=== PATIENT | female | born 1955 | race Caucasian/White ===

== ENCOUNTER 2018-05-15 14:10 | Inpatient (IN) | payer BC ==
[~2018-05-15] VITALS: Ht 167.6 cm; Wt 114.1 kg
[~2018-05-15 14:10] MED LIST: ACTOS 45MG45 MG/TAB PO; AMARYL4 MG PO; GLUCOPHAGE1000 MG PO; HYZAAR 25 MG-101 TAB PO; JANUVIA 100MG100 MG PO; LEVEMIR100 U/ML SQ; LOPID 600M600 MG/TAB PO; MOBIC15 MG PO; SINGULAIR 110 MG/TAB PO; VICTOZA6 MG/ML SQ
[2018-06-17] VITALS (7 sets, daily range): BP systolic 133–151; BP diastolic 54–67; PULSE 74–99; TEMP 97.7–98.3
--- NOTE | 2018-06-17 10:50 | NUR ---
PATIENT BACK IN ROOM 330. ORIENTED BUT DROWSY. VSS. C/O MILD DISCOMFORT/PRESSURE ABOVE RIGHT KNEE. PATIENT FALLING ASLEEP. FRIENDS LEAVING TO LET PATIENT SLEEP. RIGHT AND LEFT KNEE DRESSING ARE CD&I WITH ACEWRAP AND CONSTOVAC DRAINS INPLACE WITH SMALL AMOUNTS OF BLOODY DRAINAGE NOTED. TEDS OFF. SCD'S TO BLE. POSITIVE PEDAL PULSES TO BLE. KEITA TO DEPENDENT DRAINAGE WITH MOD AMOUNTS OF KIKE COLORED URINE NOTED. IV FLUIDS INFUSING VIA PUMP INTO LEFT HAND. NO C/O N/V. LIQUIDS AND ICE CHIPS AT BEDSIDE. HEAD TO TOE ASSESSMENT WNL. NO OTHER NEEDS. CALL LIGHT IN REACH. PATIENT SLEEPING. LIGHTS TURNED DOWN.
--- NOTE | 2018-06-17 13:18 | NUR ---
SW met with patient to discuss discharge planning. Patient lives in [place] and was independent prior to surgery. Patients PCP is Dr Molina and she obtains her medications from [facility]. Patient does not have a DPOA and would like to do one after she is able to rest today. Patient would like to go to [facility] for skilled and has already talked to them. SW obtained choice form and faxed referral. LUIS will continue to follow.
--- NOTE | 2018-06-17 14:35 | NUR ---
ONLY 50CC OF BLOOD NOTED IN BOTH CONSTOVACS, NO TRANSFUSIONS GIVEN.
--- NOTE | 2018-06-17 20:30 | NUR ---
Assessment completed. Patient is A&O x 4. VSS, on room air. Pain controlled at this time with oral regimen and scheduled Toradol. Kofi wrap dressing to bilateral knees are CDI with an ice pack maintained. Constav to both knees had minimal output on day shift and currently each have about 50 ml of blood noted, will not be re-infused. Encouraged ankle pumps while patient is laying in bed. BLE scds on. Tolerated diet with no c/o nausea. Lindsay catheter to DD with yellow clear urine draining. IVF infusing with intermittent antibiotic per orders. Denies any concerns or needs at this time. Bed is in a low position with call light in reach.
--- NOTE | 2018-06-17 21:55 | NUR ---
Patient dangled on the edge of the bed with assist x 2, patient had an increase in pain while dangling. After dangling for approximately 5 minutes assisted patient back into bed with assist x 2 and repositioned. Patient's blood sugar this evening is 200, insulin given per orders. Denies any concerns or needs at this time, call light is within reach.
[2018-06-18 00:05] VITALS: BP 150/50; PULSE 105; TEMP 98.3
[2018-06-18 04:32] VITALS: BP 155/59; PULSE 105; TEMP 98
--- NOTE | 2018-06-18 04:54 | NUR ---
Patient has rested well through the night. VSS, remains on room air. Pain has been controlled with scheduled Toradol and prn [place]. Bilateral knee nadia wraps remain CDI with fresh ice packs applied this morning. Lindsay catheter to DD with yellow clear urine draining. IVF infusing with last dose of antibiotic due this morning then will be INT. Denies any concerns or needs, call light is within reach.
[2018-06-18] MEDS ORDERED: CELEBREX 200MG200 MG PO (06:17)
[2018-06-18] MEDS ORDERED: XARELTO10 MG PO (06:17)
[2018-06-18] MEDS ORDERED: NORCO 325 MG-7.1 TAB PO (06:18)
[2018-06-18] MEDS ORDERED: PERCOCET 325 MG1 TA2 PO (06:19)
[2018-06-18] MEDS ORDERED: ULTRAM 50MG TAB50 MG PO (06:19)
--- NOTE | 2018-06-18 06:45 | NUR ---
awake resting in bed, bedside shift report received from DANIEL Otto
--- NOTE | 2018-06-18 07:50 | NUR ---
lab in to draw blood and blood sugar checked, full assessment completed, see interventions for further info, has mod amount bloody drainage to right drain site and minimal to left drain site, aquacel dressings are CD&I to bilateral knees, reviewing menu and will order breakfast soon
[2018-06-18 08:00] VITALS: BP 131/56; PULSE 98; TEMP 98.2
--- NOTE | 2018-06-18 09:02 | NUR ---
medicated with hydrocodone 7.5mg 2 tabs in anticipation of therapy and also medicated with scheduled toradol, physical and occupational therapy in to work with patient, assisted her out of bed and into recliner,
--- NOTE | 2018-06-18 10:15 | NUR ---
called nurse to room and had mod amount emesis of undigested food, medicated with phenergan 12.5mg po
--- NOTE | 2018-06-18 10:42 | NUR ---
[facility]ianna[facility] at [facility] reports that [facility] accept the patient for a skilled stay. SW to inform the patient and continue to follow.
--- NOTE | 2018-06-18 10:55 | NUR ---
remains up in chair and appears to be sleeping, eyes closed, resp quiet and easy
--- NOTE | 2018-06-18 11:25 | NUR ---
Initial visit; Patient thanked Event Representative for looking in on her and keeping her in her prayrs. Patient's Blueprint Clerk has made a call and prayed with RJ today.
--- NOTE | 2018-06-18 11:30 | NUR ---
awake and resting in chair, states she is feeling OK just very sleepy, denies needs
[2018-06-18 11:47] VITALS: BP 157/64; PULSE 99; TEMP 98.5
--- NOTE | 2018-06-18 12:38 | NUR ---
assisted up to bedside commode to try and have bowel movement, medicated with hydrocodone 7.5mg 2 tabs
--- NOTE | 2018-06-18 13:15 | NUR ---
physical therapy in to work with patient, when started to ambulate again had emesis, then felt better
--- NOTE | 2018-06-18 14:05 | NUR ---
ambulated back to room after therapy and moved slow but steady, requesting something for the nausea and vomitting
--- NOTE | 2018-06-18 14:10 | NUR ---
medicated with phenergan 12.5mg po, given hot tea to try and have
--- NOTE | 2018-06-18 15:20 | NUR ---
Julianna, at [facility], informed SW that they are now having difficulties with the patient's insurance. Julianna reports that the patient's insurance will not cover SNF, but would cover inpatient rehab and that she has met with the patient to inform. LUIS then followed up with the patient and she reports she would be agreeable to [facility]. LUIS consulted [facility] Director, Toña. SW awaiting the screening.
--- NOTE | 2018-06-18 15:34 | NUR ---
medicated with scheduled toradol, wants to wait to have catheter removed hoping her pain becomes better controlled
--- NOTE | 2018-06-18 16:17 | NUR ---
[facility] director in talking with patient regarding discharging to [facility]
[2018-06-18 16:22] VITALS: BP 151/60; PULSE 101; TEMP 98.7
--- NOTE | 2018-06-18 18:10 | NUR ---
resting in bed, patient asking to have catheter left in until morning and explained to her it had to come out today and explained why, catheter discontinued and tolerated well, medicated with hydrocodone 7.5mg 2 tabs and had saltine crackers before taking them, will order supper soon
--- NOTE | 2018-06-18 19:47 | NUR ---
Assessment completed. Patient is A&O x 4. VSS, on room air. Pain controlled at this time with prn [place] and last dose of scheduled IV Toradol given. Aquacell dressings to bilateral knee are CDI with an ice pack maintained to knee. Lateral gauze dressing on both knees have drainage. Pedal pulses intact. BLE scds on, DARRYL hose do not fit. Patient reported not having an appetite this evening but did take a small snack this evening and tolerated with no c/o nausea. INT to left hand. Patient is due to void as breen catheter was removed at the end of day shift. INT to left hand. Denies any concerns or needs at this time. Bed is in a low position with call light in reach.
[2018-06-18 21:38] VITALS: BP 179/58; PULSE 103; TEMP 98.6
--- NOTE | 2018-06-18 21:45 | NUR ---
Patient called out stating she needed to urinate. Patient stated she could not ambulate to the bathroom and needed to use the bedside commode, educated patient on ambulating to the bathroom but continued to insist she couldn't at this time. Assisted up x two with walker, patient took a few steps to bedside commode, gait unsteady. Patient voided with no difficulities. Assist x 2 back to bed, patient had difficulities getting to a standing position off the commode with help from staff. Once patient was up able to ambulate back to bed with walker, gait steady. Repositioned in bed with pillows and ice pack.
[2018-06-19] VITALS: BP 137/79; PULSE 74; TEMP 98.6
[2018-06-19 04:56] VITALS: BP 148/57; PULSE 94; TEMP 98.3
--- NOTE | 2018-06-19 05:19 | NUR ---
Patient has rested well through the night. Pain continues to be controlled with prn [place]. Aquacell dressing to bilateral knees remain CDI and lateral bilateral gauze dressings with drainage, no increase through this shift. Patient denies any concerns or needs at this time, call light is within reach.
--- NOTE | 2018-06-19 06:49 | NUR ---
awake resting in bed, bedside shift report received from DANIEL Otto
[2018-06-19 07:06] LABS: HEMATOCRIT 28.8 % (37.0-47.0); HEMOGLOBIN 9.4 g/dl (12.5-16.0)
--- NOTE | 2018-06-19 07:20 | NUR ---
blood sugar 61, provided cranberry juice per patient's request, full assessment completed, see interventions for further info,
[2018-06-19 08:03] VITALS: BP 134/42; PULSE 93; TEMP 97.9
--- NOTE | 2018-06-19 08:05 | NUR ---
Pt resting in bed. States pain level is 2/10 in R knee describes as an aching pain. SCDs put back on. Bilateral knee incisions w/ Aquacell dressing CDI. Both knees swollen. INT no redness or pain, intact on L hand. Complains of slight nausea, sat up and ate some crackers. Nausea was relieved.
--- NOTE | 2018-06-19 08:14 | NUR ---
sitting up in bed c/o some nausea, has breakfast at bedside
--- NOTE | 2018-06-19 08:45 | NUR ---
sitting up in bed and trying to eat, continues to have some nausea and had small amount of emesis, medicated with hydrocodone 7.5mg 2 tabs for c/os pain and in anticipation of therapy
--- NOTE | 2018-06-19 08:51 | NUR ---
After eating some of an kinyarwanda muffin, pt vomited approx. 45 ml. Emesis had red liquid in it from drinking cranberry juice.
--- NOTE | 2018-06-19 09:23 | NUR ---
ambulated out to toney with physicial therapy with 1 assist for group exercises
--- NOTE | 2018-06-19 09:37 | NUR ---
ambulated back to room after therapy and remains up in chair
--- NOTE | 2018-06-19 10:00 | NUR ---
continues to c/o some nausea, medicated with phenergan 12.5mg po by DANIEL Hussein
--- NOTE | 2018-06-19 10:32 | NUR ---
have reviewed assessment completed by student and in agreement with that assessment with the exception of her gait, I have observed her ambulating and believe her to have a steady gait with the walker
--- NOTE | 2018-06-19 11:00 | NUR ---
resting in chair, continues to c/o some nausea and just not feeling good, will continue to monitor
[2018-06-19 11:30] VITALS: BP 138/56; PULSE 88; TEMP 97.9
--- NOTE | 2018-06-19 11:35 | NUR ---
Reported off to primary nurse Claudia SANCHEZ.
--- NOTE | 2018-06-19 11:45 | NUR ---
remains up in chair, appears to be feeling a little better as she was joking with this nurse, has ordered lunch
--- NOTE | 2018-06-19 12:10 | NUR ---
called and left message with surgery nurse for Kesha that she has been accepted at [facility]
--- NOTE | 2018-06-19 12:22 | NUR ---
sitting up in bed eating mashed potatoes and broccoli and tolerates well at this time, given am diabetic meds now
--- NOTE | 2018-06-19 12:50 | NUR ---
medicated with hydrocodone 7.5mg 2 tabs in anticipation of therapy and for c/os pain, assisted up to bathroom and vois qs and then back to bed
--- NOTE | 2018-06-19 13:00 | NUR ---
awaiting order from Dr Whitley for patient to transfer to [facility] will wait to work with therapy
--- NOTE | 2018-06-19 14:26 | NUR ---
Toña, [facility] Director, reports that they can accept the patient for [facility]. LUIS updated Julianna at [facility]. The patient is to transfer to [facility] today, 06/19. No additional needs at this time.
--- NOTE | 2018-06-19 14:28 | NUR ---
no orders received for transfer to therapy, physical therapy in to work with patient, she is resting in bed and denies needs
--- NOTE | 2018-06-19 15:30 | NUR ---
back to bed after therapy and resting quietly, denies needs
[2018-06-19 16:19] VITALS: BP 146/53; PULSE 98; TEMP 97.4
--- NOTE | 2018-06-19 16:21 | NUR ---
Dr Whitley in to see patient
--- NOTE | 2018-06-19 17:15 | NUR ---
appears to be sleeping, in bed with eyes closed, resp quiet and easy
--- NOTE | 2018-06-19 18:03 | NUR ---
resting quietly, will have a friend bring her supper, denies needs at this time
--- NOTE | 2018-06-19 18:45 | NUR ---
bedside shift report given to DANIEL Otto
--- NOTE | 2018-06-19 19:46 | NUR ---
Assessment completed. Patient is A&O x 4. VSS, on room air. Reports pain to bilateral knees, elevated with pillows and a fresh ice pack applied. Lateral bilateral gauze dressings with drainage. Pedal pulses intact. BLE scds on. Patient had an episode of emesis this evening after eating soup, prn oral Zofran given. Voiding with no difficulities. INT to left hand. Up with assist x 1 with walker and gait belt, gait is slow and steady. Denies any concerns or needs at this time. Bed is in a low position with call light in reach.
[2018-06-19 19:51] VITALS: BP 134/50; PULSE 100; TEMP 98.5
--- NOTE | 2018-06-19 20:34 | NUR ---
Patient has continued to feel nauseous and has had 2 more episodes of emesis, prn po Phenergan given.
--- NOTE | 2018-06-19 22:30 | NUR ---
Patient ambulated to the bathroom is needing assist x 2 to get to a standing position and then is able to ambulate with assist x 1, gait is steady. Provided a small snack with pain medication this evening and tolerated with no c/o nausea or vomitting afterwards. Assisted with repositioning in bed and applied new ice packs to bilateral knees.
[2018-06-20 00:22] VITALS: BP 154/57; PULSE 99; TEMP 98.2
[2018-06-20 05:43] VITALS: BP 133/54; PULSE 102; TEMP 98.6
--- NOTE | 2018-06-20 06:12 | NUR ---
Patient has rested well through the night. VSS. Pain controlled with Percocet. Aquacell dressings to bilateral knees remain CDI and lateral gauze dressings with no increase in drainage. Patient has not c/o any nausea or vomitting since receiving prn oral Phenergan last night. Up multiple times through the night with assist x 2 at times to stand and once up x 1 assist with walker. Denies any concerns or needs at this time, call light within reach.
[2018-06-20 07:30] VITALS: BP 140/53; PULSE 103; TEMP 98
--- NOTE | 2018-06-20 08:42 | NUR ---
Bedside report from DANIEL Otto. Pt in bed in gown, SCDs to BLE and ice in place, glasses on. INT to L hand. Reviewed plan to discharge to [facility] this morning. Due to nausea and pain, ordered pt toast, applesauce, banana, dt sprite and ice tea with lemon per pt request. Zofran given, provided pain meds to take after eating something. Discharged pt from surgical account. Pt toileted with assist by IRENE Moreland, to amb to BR with FWW and gait belt. , PT will return to start therapy after pt eats and takes pain meds. Pt A&O, pleasant, recalls this nurse from visiting the hospital months ago.
[2018-06-20] MEDS ORDERED: LIPITOR 10MG10 MG PO (10:54)
[2018-06-20] MEDS ORDERED: LEVOXYL0.2 MG PO (10:56)
[2018-06-20] MEDS ORDERED: ZYRTEC 10MG10 MG PO (10:58)
== END 2018-06-20 07:48 | DRG 462 ==
LOC: JCC 06-17 05:26
PROVIDERS: Physician Assistant; ADMIT Orthopaedic Surgery
PROC: 0SRC0J9 Replacement of Right Knee Joint with Synthetic Substitute, Cemented, Open Approach (ICD-10-PCS; 2018-06-17)
PROC: 0SRD0J9 Replacement of Left Knee Joint with Synthetic Substitute, Cemented, Open Approach (ICD-10-PCS; principal; 2018-06-17 07:30)
DX: M17.0 Bilateral primary osteoarthritis of knee (principal); Z68.41 Body mass index [BMI] 40.0-44.9, adult; E11.9 Type 2 diabetes mellitus without complications; I10 Essential (primary) hypertension; E78.5 Hyperlipidemia, unspecified; E66.9 Obesity, unspecified; E03.9 Hypothyroidism, unspecified; Z85.850 Personal history of malignant neoplasm of thyroid
CPT/HCPCS: A4314; A9284; C1713; C1776; J1815; J1885; J2250; J2270; J2405; J2704; J2795; J3010; J7030

== ENCOUNTER → 2018-06-10 | Outpatient (CLI) | payer BC | LOC: COL.LAB 14:56 | DX: Z96.653 Presence of artificial knee joint, bilateral (principal) ==

== ENCOUNTER 2018-06-19 12:09 | Inpatient (IN) | payer BC ==
[~2018-06-19] VITALS: Ht 167.6 cm; Wt 116.5 kg
[~2018-06-19 12:09] MED LIST changes: +CELEBREX 200MG200 MG PO; +NORCO 325 MG-7.1 TAB PO; +PERCOCET 325 MG1 TA2 PO; +ULTRAM 50MG TAB50 MG PO; +XARELTO10 MG PO
--- NOTE | 2018-06-20 08:44 | NUR ---
This nurse resumes cares from receiving report from night shift manager carlene Otto RN. Pt being admitted to [facility] from joint unit.
--- NOTE | 2018-06-20 09:31 | NUR ---
Follow-up visit; Patient thanked Gasoline Pump Mechanic for looking in on her and keeping her in Gasoline Pump Mechanic's prayers.
[2018-06-20 09:54] VITALS: BP 142/43; PULSE 92; TEMP 97.9
[2018-06-20] MEDS ORDERED: LIPITOR 10MG10 MG PO (10:54)
[2018-06-20] MEDS ORDERED: LEVOXYL0.2 MG PO (10:56)
[2018-06-20] MEDS ORDERED: ZYRTEC 10MG10 MG PO (10:58)
--- NOTE | 2018-06-20 14:47 | NUR ---
LUIS and LUIS student met with the patient to complete initial intake as the patient is a new admit to [facility]. The patient lives alone in [place]. She reports independence with ADLs prior to hospitalization and she has canes, 2 walkers, crutches, and grab bars for her toliet. The patient's PCP is Dr. Luisa Molina and she receives her medications at the [facility]. She reports no difficulties obtaining her meds. The patient was interested in completing DPOA-HC. The patient appointed her sister (Isela) and step-daughter (Bárbara). LUIS and LUIS student witnessed the patient sign. The patient was provided with the original and some copies. A copy was placed in her chart. LUIS to continue to follow to ensure a safe discharge.
[2018-06-20 16:15] VITALS: BP 132/58; PULSE 100; TEMP 98
--- NOTE | 2018-06-20 17:24 | NUR ---
See 5 page assessment.
[2018-06-20 18:00] VITALS: BP 110/72; PULSE 100; TEMP 98.2
--- NOTE | 2018-06-20 20:35 | NUR ---
Shift assessment complete. Patient c/o 6/ pain in bilat knees. Prn pain medication given. Patient worried she will get nauseous with meds, prn antiemetic given. Bg 250, snack given with evening insulin. Patient states she will call if she needs additional pain medication. SCD's on, patient resting comfortably in bed watching TV.
--- NOTE | 2018-06-21 01:51 | NUR ---
Patient resting in bed, appears comfortable. Will continue to reassess.
[2018-06-21 03:56] VITALS: BP 136/50; PULSE 91; TEMP 98.7
--- NOTE | 2018-06-21 05:11 | NUR ---
Patient ambulated to with walker, gait belt, and assist of one. Tolerated well, 6/10 pain in bilat knees. Prn pain medication given. Slight nausea per pt, antiemetic given. Back in bed, SCD's applied. Ice packs left off (were on all night).
[2018-06-21 18:01] VITALS: BP 140/48; PULSE 93; TEMP 98.1
--- NOTE | 2018-06-21 18:29 | NUR ---
Patient reporting that she has started coughing this afternoon and evening and had me listen to her lungs. [place] some slight expiratory wheezing to left lung. She is currently on allergy medicine that she will get tonight and will be getting a replacement IS since her other one broke this afternoon. Call placed to Dr. Ruiz with message to make him aware. Will continue to monitor.
--- NOTE | 2018-06-21 21:38 | NUR ---
See new orders per Dr. Ruiz, 2 view CXR and prn duoneb treatments if needed.
--- NOTE | 2018-06-22 02:12 | NUR ---
THE PT HAS BEEN UP TO VOID (AND TWICE HAD LOOSE TO DIARRHEAL BM'S) ABOUT EVENY HR. SHE IS A MAX ASSIST TO GET HER UPRIGHT AND TO THE SIDE OF THE BED, STATED THAT SHE "CAN'T DO IT", BED USED TO HELP HER RISE, CGA WITH WALKER AND GAIT BELT. HELP TO LOWER AND RAISE HER UNDERWEAR, REQUESTED HELP WITH TOILET HYGIENE, STATED THAT SHE ISN'T ABLE TO REACH IT. ACCUCHECK WAS 256, 8 UNITS S\\S, HAD A PUDDING FOR HS SNACK. SCD'S USED. THE PT HAS A RATHER NEEDY AFFECT. ICE TO KNEES.
[2018-06-22 05:16] VITALS: BP 145/53; PULSE 93; TEMP 98.3
--- NOTE | 2018-06-22 05:40 | NUR ---
AWAKE FOR VS, SHE STATED THAT SHE HAS HAD A PRETTY GOOD NOC SLEEP AND THAT THE PAIN HAD FINALLY SETTLED DOWN.
--- NOTE | 2018-06-22 13:48 | NUR ---
07-10 PT IS IN BED AND OVERBED TRAY PUSHED ACROSSED HER LAP. PT STATES SHE NEEDS PAIN MEDS, GIVEN. PT TOLERATED PAIN MED WITHOUT ZOFRAN THIS AM. LATER PT WAS TAKEN TO BR USING THE WALKER, JUST MOD ASSIST TO GET OUT OF BED AND THEN CGA TO BR. VOIDED AND HAD A LARGE SF STOOL. PT UNABLE TO CLEAN HER BACKSIDE SO ASSIST WAS GIVEN, SKIN LOOKED GOOD. PT THEN STOOD AT SINK AND BRUSHED HER TEETH. PT THEN RETURNED TO RECLINER AND DRESSED HERSELF WITH ASSIST TO HER PANTS. PT STATES SHE HAS PAIN TO HER KNEES. LIKE A MUSCLE PULLING ON THE BACK OF HER KNEES. GIVEN PERCOCET 1 TAB AT 0800. CALL LIGHT AND ALARMS IN PLACE
[2018-06-22 16:33] VITALS: BP 150/51; PULSE 101
--- NOTE | 2018-06-23 01:05 | NUR ---
THE PT WAS UP TO THE BR SEVERAL TIMES, ONCE WITH A LARGE UNFORMED BLACKISH STOOL. ASSISTED WITH TOILET HYGIENE FOR IT. BARRIER OINT TO COCCYX. ACCUCHECK WAS 210, 6 UITS S\S NOVOLOG. HS SNACK OF PUDDING. SHE ALSO ATE THE BLUEBERRIES AND YOGURT LEFT ON HER OVER THE BED TABLE. VERBALIZED THAT TOMORROW IS HER DAY. SHE HAS HAD ICE TO HER KNEES, SCD'S ON, ELEVATED AT ANKLES WITH PILLOW AND PERCOCET 2 AT HS. APPEARS TO GET ADEQUATE SLEEP.
[2018-06-23 06:47] VITALS: BP 151/48; PULSE 94; TEMP 98
--- NOTE | 2018-06-23 08:00 | NUR ---
PATIENT RESTING IN BED. INITIAL ASSESSMENT COMPLETED. MEDICATIONS GIVEN. ALL NEEDS WERE MET. PATIENT STATES SHE WILL WANT TO GO TO THE BATHROOM AT SOME POINT, BUT NOT RIGHT NOW.
--- NOTE | 2018-06-23 15:40 | NUR ---
Report received from DANIEL Muoñz. Pt resting in bed with visitors at bedside. Assisted to bathroom, needed help getting legs into bed but otherwise steady on feet, will continue to monitor.
[2018-06-23 17:30] VITALS: BP 126/53; PULSE 91; TEMP 98.5
--- NOTE | 2018-06-23 18:27 | NUR ---
Pt has done well today. PRN pain meds provided per request. Up to chair for meals, friends visiting. Denies needs, will continue to monitor.
--- NOTE | 2018-06-23 23:36 | NUR ---
THE PT WAS BEDRESTING THE SHIFT BEGAN, CALLED FOR ASSISTANCE TO THE BR TO VOID, THEN TO HER RECLINER AND WAITS FOR HER FRIEND TO ARRIVE WITH SUPPER FROM [employer] TODAY IS HER BIRTHDAY. FRIEND ARRIVE, THE PT ATE ABOUT HALF. ACCUCHECK WAS 188, SHE HAD C\O PAIN EARLIER-1850 AND TOOK PERCOCET 2 TABS WITH CRACKERS. SHE SAT UP FOR AWHILE, THEN CALLED TO GO TO THE BR AGAIN AND TO BED. SHE HAD FRESH ICE PACKS TO KNEES, SCD'S ON. PILLOW UNDER ANKLES. BEDRESTING WITH EYES CLOSED, RESP EVEN.
--- NOTE | 2018-06-24 00:06 | NUR ---
THE PT CALLED FOR ASSISTANCE TO THE BR, STATED THAT SHE FEELS HOT AND THAT USUALLY MEANS THAT HER BLOOD SUGAR IS LOW. THIS NURSE DID A PRN ACCUCHECK, 166. PT UP TO THE BR TO VOID, BACK TO BED, POSITIONED FOR COMFORT. VERB FEELS BETTER.
[2018-06-24 05:41] VITALS: BP 152/61; PULSE 94; TEMP 97.5
--- NOTE | 2018-06-24 05:45 | NUR ---
THE PT C\O PAIN, 7\10 ON PAIN SCALE AFTER AMBULATING TO THE BR TO VOID. TO BED, POSITIONED FOR COMFORT, PERCOCET 2 AFTER EATING A PUDDING, ACCUCHECK WAS 83. LAB IN FOR DRAW.
[2018-06-24 06:20] LABS: MEAN CELL VOLUME 88 fl (80.0-100.0); MEAN CORPUSCULAR HGB CONC 32 g/dl (33.0-37.0); MEAN PLATELET VOLUME 8.5 fl (7.4-10.4); PLATELET COUNT 461 K/mm3 (130-400); RED BLOOD COUNT 3.14 M/mm3 (4.10-5.30); REDCELL DISTRIBUTION WIDTH-CV 15.3 % (11.5-14.5)
[2018-06-24 06:28] LABS: CREATININE, serum 0.52 mg/dL (0.52-1.25); MAGNESIUM 1.4 mg/dL (1.6-2.3); POTASSIUM 4.1 mmol/L (3.4-5.0)
[2018-06-24 06:29] LABS: HEMATOCRIT 27.6 % (37.0-47.0); HEMOGLOBIN 8.8 g/dl (12.5-16.0); MEAN CORPUSCULAR HEMOGLOBIN 28 pg (27.0-31.0)
[2018-06-24 07:14] LABS: EOSINOPHIL 5 % (0-4); LYMPHOCYTE 24 % (20.0-51.0); NEUTROPHILS 58 % (42.0-75.2); PLATELET ESTIMATE INCREASED (NORMAL)
--- NOTE | 2018-06-24 08:27 | NUR ---
Report from DANIEL Wesley. Pt in bed for breakfast with HOB up, glasses and gripper socks in place, ice packs were to knees. Removed airstrips from knees and BA from lateral puncture sites, CDI, edges approximated, no drainage, sutures intact to knees.
--- NOTE | 2018-06-24 11:10 | NUR ---
Pt to chair with legs elevated, c/o sharp pain in back of left knee and sl lateral. Call light in reach.
--- NOTE | 2018-06-24 15:55 | NUR ---
Spoke with Dr. Angi Houston's nurse, about pt's pain in back of left knee, instructed to apply moist heat to back of knee as it is probably muscle related. Pt declines at this time as she is too hot. Declined ice packs at this time.
[2018-06-24 17:12] VITALS: BP 144/56; PULSE 91; TEMP 97.8
--- NOTE | 2018-06-24 17:24 | NUR ---
Pt ate supper in chair with legs up, pillow under ankles, ice packs to knees.
--- NOTE | 2018-06-25 01:26 | NUR ---
THE PT WAS BEDRESTING WITH WARM PACKS UNDER POSTERIOR KNEES BILATERALLY, ICE BAGS TO THE LATERAL ASPECTS OF THEM, HEELS BRIDGED WITH PILLOW UNDER ANKLES. SCD'S ON. THE PT CALLS FOR ASSISTANCE TO THE BR TO VOID Q 20 MIN TO AN HOUR BUT DENIED UTI SYMPTOMS, SHE REQUIRES MAX ASSIST TO GET HER LEGS IN AND OUT OF THE BED. SHE CALLS STAFF TO ADJUST HER LEGS, EVEN FOR THE MOST MINUTE ADJUSTMENTS. THIS NURSE INTERJECTED THAT WE WILL NOT BE GOING HOME WITH HER AND SHE NEEDS TO CONSIDER DOING SOME OF THIS HERSELF. SHE HAD C\O PAIN,6\10, PERCOCET 2 AT HS. SHE HAD AN ACCUCHECK OF 151, 4 UNITS S\S COVERAGE. HS SNACK OF PUDDING. SHE WATCHED THE [employer] GAME AND THEN PUT LIGHTS OUT. CONTINUES TO CALL FREQUENTLY WITH NAPS BETWEEN CALLS.
--- NOTE | 2018-06-25 03:03 | NUR ---
BEDRESTING WITH EYES CLOSED, RESP EVEN.
--- NOTE | 2018-06-25 05:00 | NUR ---
APPEARS TO GET ADEQUATE SLEEP ALBEIT IN NAPS.
[2018-06-25 06:39] VITALS: BP 145/66; PULSE 92; TEMP 97.8
--- NOTE | 2018-06-25 07:42 | NUR ---
Report from DANIEL Wesley. SCDs off as pt OOB to chair with legs up for breakfast.
--- NOTE | 2018-06-25 10:22 | NUR ---
Pt taking percoset for pain today, cont to c/o pain to back of knees- enc to call for warm pack after therapy. Airstrips to BLE intact. Gripper socks in place. A&O, pleasantly cooperative. Took pills with thin liquids.
--- NOTE | 2018-06-25 11:37 | NUR ---
Warm packs to back of knees.
--- NOTE | 2018-06-25 13:21 | NUR ---
SW and SW student met with the patient and scheduled a family meeting with her sisters for tomorrow, 06/26, at 1400. SW to continue to follow.
[2018-06-25 18:08] VITALS: BP 131/56; PULSE 89; TEMP 99
--- NOTE | 2018-06-25 20:00 | NUR ---
HS meds all reviewed and given along with percocet. Patient dresses self in hospital gown for HS with set up help only. Patient rests self back in bed. Warm packs placed under knees and cold packs to top of knees. Snack of applesauce given with meds. Declined nutrition snack.
--- NOTE | 2018-06-25 22:45 | NUR ---
Returned from bathroom with standby assist. States yes to percocet helped. Ice and warm packs removed.
--- NOTE | 2018-06-26 01:55 | NUR ---
Patient rests with eyes closed. Respirations with ease.
[2018-06-26 04:56] VITALS: BP 148/66; PULSE 94; TEMP 97.6
--- NOTE | 2018-06-26 05:37 | NUR ---
PATIENT REPORTS HAS BEEN RESTING WELL FOLLOWING PAIN MED CLOSE TO MIDNIGHT. UP TO THE BATHROOM AND BACK TO BED. TAKES GLUCERNA PER REQUEST PRIOR TO PAIN MED THIS AM.
--- NOTE | 2018-06-26 15:39 | NUR ---
LUIS and LUIS student attended a family meeting with the patient, patient's sister (Isela), and [id number] (Konrad). Also present was [facility] Director, PT, and OT. I[facility] Director starting by explaining the purpose of the meeting. PT/OT discussed how the patient is doing and their recommendations for a shower chair. LUIS discussed the teams recommendation of outpatient PT with a tentative discharge date for Sunday, 06/28. The patient was in agreeance to this plan. The team answered all the patient and patient's families questions. LUIS then followed up with the patient and reviewed the [facility] Team Conference Note with her. The patient reports that she thinks she may have a shower chair at home, otherwise she will shop around for one. The patient reports that she prefers [facility] for [facility]. The patient had no other questions or concerns at this time. LUIS to continue to follow.
[2018-06-26 19:00] VITALS: BP 161/59; PULSE 95; TEMP 97.5
--- NOTE | 2018-06-26 20:20 | NUR ---
Patient attended all therapies today. Reported some pain to bilateral knees throughout the day and given prn percocet with good effect. Therapy made her Independent in her room with her walker today. Therapy visited with her about going home soon and she became very anxious following that meeting. She spoke with this nurse requesting to talk to Toña to discuss the posibility of staying longer. This was communicated to Toña and she will meet with patient tomorrow. Patient was updated on this. Blood pressure was a little higher this evening due to her anxiety. Patient tolerated diet well today. She ate food from [employer] this evening and ate 100%. Patient needed observation only with ambulation, transfers and transfers to toilet. Patient was independent with eating and grooming today. Reported off to night nurse.
--- NOTE | 2018-06-26 21:00 | NUR ---
HS meds along with insulin reviewed and given. Denies need for further pain med at this time. Alert and oriented x 4. Is modified independent in room and walker in reach. Rests in bed watching TV. Declines snack at this time.
--- NOTE | 2018-06-26 23:00 | NUR ---
Percocet given for bilateral knee pain followed by ice packs.
--- NOTE | 2018-06-27 02:35 | NUR ---
Patient rests with eyes closed. Respirations with ease.
[2018-06-27 05:30] VITALS: BP 146/67; PULSE 75; TEMP 97.9
--- NOTE | 2018-06-27 05:36 | NUR ---
Patient reports being hot and sweaty. Accu check 57. OJ 6 ounces and glucerna given. Percocet given for pain 6/10 bilateral knees. Patient has been resting in bed with eyes closed prior to.
--- NOTE | 2018-06-27 10:19 | NUR ---
Patient currently working with therapy at this time. Patient able to take pills whole with water, eats independently and is Independent in her room. Patient still anxious about going home, therapy will be working with her today and try to address her concerns prior to her discharge.
--- NOTE | 2018-06-27 10:34 | NUR ---
Called and spoke with Dr. Whitley's nurse. Dr. Whitley is still wanting patient to wear thigh high lara hose even upon discharge home. This nurse will discuss with patient about reason lara hose had not been purchased yet and if this nurse could be of further assistance to get them to her. Will also discuss with Toña about the need for her to be working with therapy to be able to take them off and on by herself.
--- NOTE | 2018-06-27 10:47 | NUR ---
Spoke with patient and discussed her needing to get her lara hose purchased. She will be calling [employer] about pricing this morning. Applied lotion to bilateral legs per patient request.
[2018-06-27 14:58] VITALS: BP 139/62; PULSE 82; TEMP 97.6
--- NOTE | 2018-06-27 15:34 | NUR ---
LUIS and LUIS student followed up with the patient to review her discharge for tomorrow, 06/28. The patient reports that she now plans to return to her sister's house upon discharge and will stay with her over the weekend. LUIS provided the patient with private duty services, if she is in need of additional help when she does return home. LUIS provided her with [facility], [facility], [facility], and [facility] information. SW to continue to follow.
--- NOTE | 2018-06-27 18:00 | NUR ---
Patient reported that she will be getting her lara hose tomorrow and will start using them. Patient attended all therapies today. She ate all her meals and tolerated them well. Taking percocet throughout the day to help with bilateral knee pain and has been effective. Patient is independent in her room with her walker.
--- NOTE | 2018-06-27 21:00 | NUR ---
PT SITTING IN RECLINER. MOD I IN ROOM WITH WALKER. PT ANXIOUS ABOUT GOING HOME. PLANS TO GO TO SISTERS HOME FOR A FEW DAYS. HAS TEDS HOSE ORDERED THROUGH [facility]. WILL RECHECK ACCUCHECK CLOSER TO MIDNIGHT PP. SEE MAR FOR PAIN MEDS GIVEN. LBM TODAY X2 PER PT. VOIDING WELL.
[2018-06-28 03:30] VITALS: BP 158/52; PULSE 90; TEMP 97.9
[2018-06-28 07:36] LABS: MEAN CELL VOLUME 88 fl (80.0-100.0); MEAN CORPUSCULAR HGB CONC 32 g/dl (33.0-37.0); MEAN PLATELET VOLUME 8.3 fl (7.4-10.4); PLATELET COUNT 477 K/mm3 (130-400); RED BLOOD COUNT 3.19 M/mm3 (4.10-5.30); REDCELL DISTRIBUTION WIDTH-CV 15.9 % (11.5-14.5)
[2018-06-28 07:37] LABS: HEMATOCRIT 28.1 % (37.0-47.0); MEAN CORPUSCULAR HEMOGLOBIN 28 pg (27.0-31.0)
[2018-06-28 07:57] LABS: CREATININE, serum 0.53 mg/dL (0.52-1.25); MAGNESIUM 1.7 mg/dL (1.6-2.3); POTASSIUM 4.3 mmol/L (3.4-5.0)
[2018-06-28 08:59] LABS: ANISOCYTOSIS 1+; BAND 7 % (0-10); EOSINOPHIL 5 % (0-4); LYMPHOCYTE 23 % (20.0-51.0); METAMYELOCYTE 1 % (0-0); NEUTROPHILS 50 % (42.0-75.2); PLATELET ESTIMATE NORMAL (NORMAL)
--- NOTE | 2018-06-28 09:34 | NUR ---
Report from DANIEL Freeman. SCDs off as pt is Mod I in Rm with [facility].
--- NOTE | 2018-06-28 10:44 | NUR ---
LUIS and SW student met with the patient to discuss setting up an outpatient appointment at her preferred therapy center, [facility]. The patient reports that she has been in contact with them and plans to call them herself to set up the appointment. The patient is to discharge today, 06/28, to her sister's house and will receieve outpatient PT at [facility]. No additional needs at this time.
[2018-06-28] MEDS ORDERED: FERRO-TIME325 MG PO (11:24)
[2018-06-28] MEDS ORDERED: ASPI325T6 PO (11:25)
[2018-06-28] MEDS ORDERED: FOLIC ACID 40400 MCG PO (11:25)
[2018-06-28] MEDS ORDERED: VITAMIN C500 MG PO (11:25)
[2018-06-28] MEDS ORDERED: CELEBREX 200MG200 MG PO (11:25)
[2018-06-28] MEDS ORDERED: PROTONIX20 MG PO (11:26)
[2018-06-28] MEDS ORDERED: XARELTO10 MG PO (11:27)
[2018-06-28] MEDS ORDERED: PERCOCET 325 MG1 TA2 PO (11:28)
[2018-06-28] MEDS ORDERED: MAG-OX 400400 MG/TAB PO (11:29)
--- NOTE | 2018-06-28 16:37 | NUR ---
Patient health summary, discharge summary, and home med list printed and reviewed with patient and friends. Stressed importance of follow up appointments with PCP, Ortho, PT and labs. Reviewed meds, provided printed prescription for percoset, called pt's pharmacy to clarify xarelto order of 1 tab. Belongings gathered by pt and staff incuding walker, glasses, clothes, shoes, anuja, cell phone, e-reader and chargers and own victoza. Pt ambulated by walker with IRENE Moreland for ride home with friends.
== END 2018-06-28 16:30 | disposition home or self-care (01) | DRG 560 ==
PROVIDERS: ADMIT Internal Medicine
DX: Z47.1 Aftercare following joint replacement surgery (principal); Z68.41 Body mass index [BMI] 40.0-44.9, adult; M17.0 Bilateral primary osteoarthritis of knee; Z96.653 Presence of artificial knee joint, bilateral; E11.9 Type 2 diabetes mellitus without complications; I10 Essential (primary) hypertension; E66.01 Morbid (severe) obesity due to excess calories; Z85.850 Personal history of malignant neoplasm of thyroid; D64.9 Anemia, unspecified; E83.42 Hypomagnesemia
CPT/HCPCS: 99222-AI; 99232-AI; 99239; J1815

== ENCOUNTER 2018-11-28 06:59 | Day surgery (SDC) | payer BC ==
[2018-11-28] VITALS (7 sets, daily range): BP systolic 129–149; BP diastolic 46–68; PULSE 82–87; TEMP 98.1–99.2
[~2018-11-28] VITALS: Ht 167.6 cm; Wt 110.9 kg
[~2018-11-28 06:59] MED LIST changes: +ASPI325T6 PO; +FERRO-TIME325 MG PO; +FOLIC ACID 40400 MCG PO; +LEVOXYL0.2 MG PO; +LIPITOR 10MG10 MG PO; +MAG-OX 400400 MG/TAB PO; +PROTONIX20 MG PO; +VITAMIN C500 MG PO; +ZYRTEC 10MG10 MG PO
[2018-11-28] MEDS ORDERED: ASPIRIN 81M81 MG/TA2 PO (09:32)
[2018-11-28] MEDS ORDERED: SYNTHROID0.2 MG/TAB PO (09:34)
--- NOTE | 2018-11-28 10:00 | NUR ---
Resting and awaits surgery.
--- NOTE | 2018-11-28 11:30 | NUR ---
Assisted up to the bathroom and is able to void. Returns to room and resting on cart.
--- NOTE | 2018-11-28 12:30 | NUR ---
Dr. Styles here and talks with the patient re: surgery.
[2018-11-28] MEDS ORDERED: NORCO 325 MG-51 TAB PO (15:08)
--- NOTE | 2018-11-28 15:35 | NUR ---
Patient returns to room 7 per cart from PACU and is awake and alert. Temp 98.2 and room air sats 99%. Dressing on left inguinal area, left lateral distal calf and right calf dry and intact. Patient denies pain or nausea. IV fluids infusing and call light in reach. Taking ice chips and sips of cranberry juice. Allowed to rest.
--- NOTE | 2018-11-28 15:50 | NUR ---
Resting and talking to Dr. Styles.
--- NOTE | 2018-11-28 16:05 | NUR ---
Continues to rest without complaints of pain or nausea.
--- NOTE | 2018-11-28 16:20 | NUR ---
Eating muffin and talking with sister.
--- NOTE | 2018-11-28 16:35 | NUR ---
Tolerates muffin and denies need for pain medication.
--- NOTE | 2018-11-28 16:55 | NUR ---
Patient assisted up to the bathroom and voids. Returns to room. Rates left groin discomfort at 5/10. Medicated with Gratz 5mg one tab in preparation for discharge and ride home. IV discontinued and denies nausea. Assisted patient with dressing. States that she is feeling better up walking and moving. Bilateral lower leg dressings clean and dry.
--- NOTE | 2018-11-28 17:05 | NUR ---
Provided dismissal instructions and voices understanding of these. Given script for [place].
--- NOTE | 2018-11-28 17:13 | NUR ---
Patient dismissed to home per private vehicle driven by sister and taken to the front door per wheelchair and assisted into car by RN with dismissal instructions in hand.
== END 2018-11-28 17:13 | disposition home or self-care (01) ==
LOC: SDCO 06:59
DX: C43.72 Malignant melanoma of left lower limb, including hip (principal); C44.722 Squamous cell carcinoma of skin of right lower limb, including hip; Z90.49 Acquired absence of other specified parts of digestive tract; Z90.710 Acquired absence of both cervix and uterus; Z96.653 Presence of artificial knee joint, bilateral; Z88.5 Allergy status to narcotic agent; Z88.0 Allergy status to penicillin; Z79.4 Long term (current) use of insulin; Z79.82 Long term (current) use of aspirin; Z79.01 Long term (current) use of anticoagulants
CPT/HCPCS: A9541; J2704; J3010; J7030

== ENCOUNTER → 2019-01-14 | Outpatient (CLI) | payer BC ==
[~2019-01-14] MED LIST changes: +ASPIRIN 81M81 MG/TA2 PO; +NORCO 325 MG-51 TAB PO; +SYNTHROID0.2 MG/TAB PO
== END ==
LOC: ZCOL.LAB 10:25
DX: S81.809A Unspecified open wound, unspecified lower leg, initial encounter (principal)

== ENCOUNTER → 2019-03-11 | Outpatient (CLI) | payer BC | LOC: MC.RAD 10:30 | DX: Z12.31 Encounter for screening mammogram for malignant neoplasm of breast (principal) ==

== ENCOUNTER → 2021-06-20 | Outpatient (CLI) | payer OTHER | LOC: MC.RAD 09:20 | DX: Z12.31 Encounter for screening mammogram for malignant neoplasm of breast (principal) ==

== ENCOUNTER 2021-10-21 10:36 | Day surgery (SDC) | payer OTHER ==
[~2021-10-21] VITALS: Ht 167.6 cm; Wt 106.3 kg
[2021-10-21] MEDS ORDERED: LASIX 40MG TABL40 MG PO (11:22)
[2021-10-21] MEDS ORDERED: GLUCOTROL 5M5 MG/TAB PO (11:23)
[2021-10-21] MEDS ORDERED: HCTZ 25MG TAB25 MG PO (11:23)
[2021-10-21] MEDS ORDERED: COZAAR100 MG PO (11:24)
[2021-10-21] MEDS ORDERED: OZEMPIC1 MG/0.71 SQ (11:25)
[2021-10-21] MEDS ORDERED: TREMFYA100 MG/1 M SQ (11:26)
[2021-10-21] MEDS ORDERED: TRESIBA FL200 UNIT/1 SQ (11:26)
[2021-10-21 11:50] VITALS: BP 139/74; PULSE 93; TEMP 98.9
[2021-10-21 15:35] VITALS: BP 134/62; PULSE 92; TEMP 96.5
[2021-10-21 15:50] VITALS: BP 137/81; PULSE 87
[2021-10-21 16:00] VITALS: BP 144/75; PULSE 88
--- NOTE | 2021-10-21 16:03 | NUR ---
1535 - PT arrived from procedure and was settled by Sherine SANCHEZ. Written report obtained. PT provided with a warm muffin and ice water to drink per request. PT oriented to room and call ortega, within reach. 1550 - VSS. PT denies nausea and pain; no vomiting. Calll ortega remains within reach.
--- NOTE | 2021-10-21 16:05 | NUR ---
VSS. Call ortega remains within reach. PT continues to deny nasuea and pain.
[2021-10-21 16:15] VITALS: BP 139/65; PULSE 86
--- NOTE | 2021-10-21 16:15 | NUR ---
IV discontinued. Catheter tip intact. Pressure bandage applied. NO redness or swelling noted. DC instructions and educational material reveiwed with the PT who verbalized understanding and signed the related paperwork. PT denied needing assistance changing into personal clothes. Call ortega remains within reach if needed.
--- NOTE | 2021-10-21 16:25 | NUR ---
PT dismissed from endo via wheelchair to the PT entrence by Silvia SANCHEZ and was transferred into the her sister, who is driving private van. PT has DC packet and personal belongings in hand.
== END 2021-10-21 16:25 | disposition home or self-care (01) ==
LOC: SDCO 10:36
DX: Z12.11 Encounter for screening for malignant neoplasm of colon (principal); D12.3 Benign neoplasm of transverse colon; E11.9 Type 2 diabetes mellitus without complications; E66.01 Morbid (severe) obesity due to excess calories; Z68.39 Body mass index [BMI] 39.0-39.9, adult; Z79.82 Long term (current) use of aspirin; Z85.850 Personal history of malignant neoplasm of thyroid; Z79.4 Long term (current) use of insulin; Z79.84 Long term (current) use of oral hypoglycemic drugs; Z85.820 Personal history of malignant melanoma of skin; Z79.899 Other long term (current) drug therapy
CPT/HCPCS: J2704; J7030

== ENCOUNTER 2022-07-06 12:48 | Emergency (ER) | payer OTHER ==
[~2022-07-06] VITALS: Ht 165.1 cm; Wt 106.8 kg
[~2022-07-06 12:48] MED LIST changes: +COZAAR100 MG PO; +GLUCOTROL 5M5 MG/TAB PO; +HCTZ 25MG TAB25 MG PO; +LASIX 40MG TABL40 MG PO; +OZEMPIC1 MG/0.71 SQ; +TREMFYA100 MG/1 M SQ; +TRESIBA FL200 UNIT/1 SQ
[2022-07-06 12:49] VITALS: BP 180/70; PULSE 84; TEMP 98
== END 2022-07-06 14:40 | disposition home or self-care (01) ==
LOC: COL.ER 12:48
DX: E11.649 Type 2 diabetes mellitus with hypoglycemia without coma (principal)

== ENCOUNTER → 2023-08-31 | Day surgery (SDC) | payer MEDICARE ==
[~2023-08-31] VITALS: Ht 165.1 cm; Wt 80.3 kg
[~2023-08-31] MED LIST changes: +ARICEPT10 MG PO; +COMPLETE MULTI1 TAB PO; +ELIQUIS 5MG PO; +HUMALOG100 U/ML SQ; +Insulin Regular Human (NovoLIN R/HumuLIN R) SQ ONE; +K-DUR 10 MEQ T10 MEQ PO; +KAPSPARGO SPRIN25 MG PO; +LANTUS100 U/ML SQ; +LEXAPRO 10MG10 MG PO; +LR 1,000 ML IV SCH; +Lidocaine PF 2% (20 MG/ML) 5 ML VIAL ONE; +NAMENDA 10MG TA10 MG PO; +Ondansetron 4 MG/2 ML VIAL IV PRN; +PACERONE100 MG PO; +PRIL40 PO; +SYNTHROID0.088 MG/T; +SYNTHROID0.1 MG/TAB PO; +XYZAL PO; +XYZAL5 MG PO
[2023-08-31 12:30] VITALS: BP 122/66; PULSE 50; TEMP 98.1
[2023-08-31 12:45] VITALS: BP 127/67; PULSE 51
[2023-08-31 12:54] VITALS: BP 132/65; PULSE 50
--- NOTE | 2023-08-31 12:55 | NUR ---
1230 Pt ambulated from cart to chair with ease 1233 pt tolerating po intake well 1256 pt verbalizes discharge education/instructions 1306 MD Betsy in with pt 1308 pt escorted out via wheelchair - pt denies questions or concnerns
[2023-08-31 14:40] VITALS: BP 116/79; PULSE 50; TEMP 98.2
--- NOTE | 2023-08-31 14:44 | NUR ---
1027 Patient ambulatory to bay with steady gait, breathing even and unlabored. Pt is alert and oriented. Consents reviewed and signed by the patient. IV established. LR infusion via gravity at KVO. Accucheck reading of 246 mg/dL reported to Nano Oglesby, anesthesia provider. Received a verbal order to give 2 units of regular insulin SQ. Patient medicated per order and taken for procedure. Warm blanket provided.
== END ==
LOC: SDCO 09:54
DX: Z12.11 Encounter for screening for malignant neoplasm of colon (principal); D12.5 Benign neoplasm of sigmoid colon; K57.30 Diverticulosis of large intestine without perforation or abscess without bleeding; E66.01 Morbid (severe) obesity due to excess calories; Z68.39 Body mass index [BMI] 39.0-39.9, adult; Z80.0 Family history of malignant neoplasm of digestive organs
CPT/HCPCS: J1815; J2704; J7120

== ENCOUNTER 2024-03-01 16:08 | Inpatient (IN) | payer MEDICARE ==
[~2024-03-01] VITALS: Ht 167.6 cm; Wt 86.1 kg
[2024-03-01] VITALS (201 sets, daily range): BP systolic 148–173; BP diastolic 73–87; PULSE 54–56; TEMP 98.1; O2SAT 83–100
[~2024-03-01 16:08] MED LIST changes: +ASPERCREME1 EACH TP; +BASAGLAR K100 UNIT/1 SQ; +BASAGLAR T100 UNIT/1 SQ; +HUMALOG PEN100 U/ML SQ; +IRON TABLETS325 MG PO; -Insulin Regular Human (NovoLIN R/HumuLIN R) SQ ONE; +KLOR-CON SPRIN10 MEQ PO; -LR 1,000 ML IV SCH; -Lidocaine PF 2% (20 MG/ML) 5 ML VIAL ONE; -Ondansetron 4 MG/2 ML VIAL IV PRN; +PACERONE200 MG PO; +SYNTHROID 0.10.15 MG PO; +TESSALON P100 MG/CAP PO; +TOPROL XL 25MG25 MG PO; +VOLTAREN GEL 1%1 TU TP
[2024-03-01 16:48] LABS: BASO # 0.1 K/mm3 (0.0-0.2); BASO % 0.9 % (0.0-2.0); EOS # 0.1 K/mm3 (0.0-0.7); EOS % 1.4 % (0.0-4.0); GRAN # 3.4 K/mm3 (1.4-6.5); GRAN % 61.4 % (42.2-75.2); HEMOGLOBIN 13.4 g/dl (12.5-16.0); LYMPH # 1.5 K/mm3 (1.2-3.4); LYMPH % 27.5 % (20.0-51.0); MEAN CELL VOLUME 89 fl (80.0-100.0); MEAN CORPUSCULAR HEMOGLOBIN 31 pg (27-31); MEAN CORPUSCULAR HGB CONC 34 g/dl (33.0-37.0); MEAN PLATELET VOLUME 10.7 fl (7.4-10.4); MONO # 0.5 K/mm3 (0.1-0.6); MONO % 8.6 % (1.7-9.3); PLATELET COUNT 235 K/mm3 (130-400); RED BLOOD COUNT 4.39 M/mm3 (4.10-5.30)
[2024-03-01 16:53] LABS: INR 0.9 (0.8-3.0); PROTHROMBIN TIME 10.2 SECONDS (9.7-12.8)
[2024-03-01 17:00] LABS: ALBUMIN 3.8 g/dL (3.4-4.8); BILIRUBIN,TOTAL 0.5 mg/dL (0.2-1.2); CALCIUM 8.3 mg/dL (8.4-10.2); CREATININE, serum 1.7 mg/dL (0.57-1.11); POTASSIUM 4.6 mEq/L (3.5-4.5); TOTAL PROTEIN 6.7 g/dl (6.2-8.1)
[2024-03-01 17:29] LABS: COLLECTION METHOD CLEAN CATCH
[2024-03-01] MEDS ORDERED: Insulin Regular Human (NovoLIN R/HumuLIN R) IV ONE (17:30)
[2024-03-01] MEDS ORDERED: LR 1,000 ML IV ONE (17:30)
[2024-03-01 17:33] LABS: PH 6.5 (5.0-8.5); URINE APPEARANCE CLEAR (CLEAR/HAZY); URINE BLOOD NEGATIVE (NEGATIVE); URINE COLOR YELLOW (YELLOW); URINE GLUCOSE 3+ (NEGATIVE); URINE KETONE 1+ (NEGATIVE); URINE NITRATE NEGATIVE (NEGATIVE); URINE PROTEIN(semi-quant) NEGATIVE (NEGATIVE); URINE UROBILINOGEN 0.2 E.U/dL (0.2-1.0)
[2024-03-01] MEDS ORDERED: Insulin Human Regular/NS 100 ML IV ONE (18:30)
[2024-03-01] MEDS ORDERED: Acetaminophen 500 MG TAB PO PRN (18:45)
[2024-03-01] MEDS ORDERED: Ondansetron 4 MG/2 ML VIAL IV PRN (18:45)
[2024-03-01] MEDS ORDERED: NS & 20 mEq KCl 1,000 ML IV SCH (19:00)
[2024-03-01] MEDS ORDERED: Morphine 4 MG/ML VIAL IV ONE (21:00)
[2024-03-01] MEDS ORDERED: Donepezil 5 MG TAB PO SCH (21:00)
[2024-03-01] MEDS ORDERED: D5 1/2 NS & 20 mEq KCl 1,000 ML IV SCH (21:00)
[2024-03-01] MEDS ORDERED: Atorvastatin 10 MG TAB PO SCH (21:00)
[2024-03-01] MEDS ORDERED: Memantine 10 MG TAB PO SCH (21:00)
[2024-03-01] MEDS ORDERED: fentaNYL 50 MCG/ML 2 ML VIAL IV PRN (21:15)
[2024-03-02] VITALS (473 sets, daily range): BP systolic 137–157; BP diastolic 60–70; PULSE 53–65; TEMP 98–98.5; O2SAT 91–100
[2024-03-02 01:25] LABS: ALBUMIN 3.3 g/dL (3.4-4.8); BILIRUBIN,TOTAL 0.3 mg/dL (0.2-1.2); CALCIUM 7.8 mg/dL (8.4-10.2); CREATININE, serum 1.07 mg/dL (0.57-1.11); POTASSIUM 3.6 mEq/L (3.5-4.5); TOTAL PROTEIN 5.7 g/dl (6.2-8.1)
[2024-03-02] MEDS ORDERED: Insulin Glargine-ygfn (Lantus) SQ ONE ×2 (02:00→14:00)
[2024-03-02 05:05] LABS: BASO % 0.5 % (0.0-2.0); EOS % 0.4 % (0.0-4.0); GRAN # 5.3 K/mm3 (1.4-6.5); GRAN % 68.4 % (42.2-75.2); HEMOGLOBIN 12.6 g/dl (12.5-16.0); LYMPH # 1.6 K/mm3 (1.2-3.4); LYMPH % 21.2 % (20.0-51.0); MEAN CELL VOLUME 87 fl (80.0-100.0); MEAN CORPUSCULAR HEMOGLOBIN 30 pg (27-31); MEAN CORPUSCULAR HGB CONC 34 g/dl (33.0-37.0); MEAN PLATELET VOLUME 9.9 fl (7.4-10.4); MONO # 0.7 K/mm3 (0.1-0.6); MONO % 9.4 % (1.7-9.3); PLATELET COUNT 260 K/mm3 (130-400); REDCELL DISTRIBUTION WIDTH-CV 13.1 % (11.5-14.5)
[2024-03-02 05:17] LABS: CALCIUM 8.3 mg/dL (8.4-10.2); CREATININE, serum 0.94 mg/dL (0.57-1.11); POTASSIUM 3.7 mEq/L (3.5-4.5)
[2024-03-02 05:34] LABS: HEMATOCRIT 36.7 % (37.0-47.0)
[2024-03-02] MEDS ORDERED: Dextrose (Glucose) 15 GM (4 x 3.75 GM) Chewable TABLET PACK PO PRN (05:45)
[2024-03-02] MEDS ORDERED: Glucagon 1 MG VIAL IM PRN (05:45)
[2024-03-02] MEDS ORDERED: Dextrose 50% Water 25 GM/50 ML SYRINGE IV PRN (05:45)
--- NOTE | 2024-03-02 07:45 | NUR ---
Patient awake and resting in bed, requesting assistance to the bathroom. Assisted to commode with 1 assist. Tolerated transfer well. Patient denies any concens at this time and states she is "ready to go home". Call light left within reach.
[2024-03-02] MEDS ORDERED: Insulin Lispro (HumaLOG) SQ SCH (08:00)
[2024-03-02] MEDS ORDERED: Amiodarone 200 MG TAB PO SCH (09:00)
[2024-03-02] MEDS ORDERED: Escitalopram 10 MG TAB PO SCH (09:00)
[2024-03-02 09:43] LABS: CREATININE, serum 0.94 mg/dL (0.57-1.11)
--- NOTE | 2024-03-02 12:49 | NUR ---
SW met with patient to complete intake. Patient states that she resides in [facility], next of kin and DPOA/HC is sister Isela Jimenez [phone]. Patient states that she did not utilize home health services prior to arrival of hospital, is independent with ADLS, PCP is Dr. Molina and she is unable to recall pharmacy at this time. Patient plans to return to [facility] on discharge. SW will continue to follow. Discharge plan: back to [facility].
[2024-03-02 13:29] LABS: CALCIUM 8.3 mg/dL (8.4-10.2); CREATININE, serum 1.1 mg/dL (0.57-1.11); POTASSIUM 4.5 mEq/L (3.5-4.5)
--- NOTE | 2024-03-02 14:30 | NUR ---
Discharge packet reviewed with patient and family. All questions and concerns addressed at this time. Assisted out of facility with family present and will escort her back to [facility] [place] [facility].
[2024-03-02] MEDS ORDERED: Insulin Glargine-ygfn (Lantus) SQ SCH (21:00)
== END 2024-03-02 14:30 | disposition home or self-care (01) | DRG 638 ==
LOC: COL.ER 16:08 → ICU 18:57
PROVIDERS: Emergency Medicine; Physician Assistant; ADMIT Internal Medicine
DX: E11.10 Type 2 diabetes mellitus with ketoacidosis without coma (principal); N17.9 Acute kidney failure, unspecified; E03.9 Hypothyroidism, unspecified; I10 Essential (primary) hypertension; E78.5 Hyperlipidemia, unspecified; I48.91 Unspecified atrial fibrillation; W18.30XA Fall on same level, unspecified, initial encounter; F32.A Depression, unspecified; F03.90 Unspecified dementia, unspecified severity, without behavioral disturbance, psychotic disturbance, mood disturbance, and anxiety; Z88.8 Allergy status to other drugs, medicaments and biological substances; Z88.0 Allergy status to penicillin; Z85.850 Personal history of malignant neoplasm of thyroid; Z79.890 Hormone replacement therapy
CPT/HCPCS: J1815; J2270; J3010; J3480; J7120